=== PATIENT | female | born 1985 ===

== ENCOUNTER → 2019-09-22 | Outpatient (CLI) | payer BC ==
[2019-09-24 15:06] LABS: CHLAMYDIA TRACHOMATIS, NAA Negative (Negative); NEISSERIA GONORRHOEAE, NAA Negative (Negative)
[2019-09-26 18:06] LABS: HSV-1 DNA Positive (Negative); HSV-2 DNA Negative (Negative)
== END | disposition home or self-care (01) ==
LOC: LAB SHORT 13:00 → LAB 13:00
DX: N72 Inflammatory disease of cervix uteri (principal)
CPT/HCPCS: 87491; 87529; 87591